=== PATIENT | female | born 1990 | race Caucasian/White ===

== ENCOUNTER 2018-03-25 16:34 | Emergency (ER) | payer OTHER ==
[2018-03-25] MEDS: LIDOCAINE 1% (MDV) 10 ML INJ INJ (17:35)
== END 2018-03-25 17:34 | disposition home or self-care (01) ==
LOC: FTE 16:34
DX: L02.416 Cutaneous abscess of left lower limb (principal)
CPT/HCPCS: 10060; 99284-25

== ENCOUNTER 2018-03-27 11:04 | Emergency (ER) | payer OTHER | END 2018-03-27 11:32 | disposition home or self-care (01) | LOC: FTE 11:04 | DX: Z48.01 Encounter for change or removal of surgical wound dressing (principal) | CPT/HCPCS: 99281; Z7502 ==